=== PATIENT | female | born 1975 | race Caucasian/White ===

== ENCOUNTER → 2018-08-04 15:17 | Outpatient (CLI) | payer BC, SELFPAY ==
[2018-08-03 16:27] VITALS: BMI 25.8
== END ==
PROVIDERS: Family Provider Family Medicine; PCP Family Medicine; Referring Provider Physician Assistant; Visit Provider Physician Assistant
DX: J02.9 Acute pharyngitis, unspecified (principal)
CPT/HCPCS: 87081

== ENCOUNTER 2020-06-05 10:53 | Day surgery (SDC) | payer OTHER, SELFPAY ==
[2018-08-03 16:27] VITALS: BMI 25.8
--- NOTE | 2020-06-02 17:40 | HP.PCM_ITS ---
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 Signed Encounter Date: 05/12/2020 Expand AllCollstaci All Hide copied text Cem for details Pre-Op History and Physical ? HPI: The patient is a 45 year old female presenting for pre-operative visit. She is scheduled for Hysteroscopy D&C and polypectomy, for AUB, EM polyp. Procedure discussed along with risks, benefits and complications. Other alternatives discussed for management. Consent form signed? Yes. ? ? PAST MEDICAL HISTORYExpand by Default PAST MEDICAL HISTORY Diagnosis Date ? NEGATIVE MEDICAL HISTORY ? ? ? PAST SURGICAL HISTORYExpand by Default PAST SURGICAL HISTORY Procedure Laterality Date ? D&C, DIAG AND/OR THERAPEUTIC ? 2002 ? ? ? CURRENT MEDICATIONSExpand by Default Current Outpatient Medications Medication Sig Dispense Refill ? cyanocobalamin, vitamin B-12, (VITAMIN B12 ORAL) Take by mouth. ? ? ? FEXOFENADINE/PSEUDOEPHEDRINE (REINA-D 24 HOUR ORAL) Take by mouth. ? ? ? metroNIDAZOLE (FLAGYL) 500 mg tablet Take 1 tablet by mouth twice daily for 7 days. 14 tablet 0 ? fluconazole (DIFLUCAN) 150 mg tablet Take 1 tablet by mouth one time only for 1 dose. 1 tablet 0 ? ibuprofen (MOTRIN) 600 mg tablet Take 1 tablet by mouth every 6 hours as needed. 30 tablet 0 ? No current facility-administered medications for this visit. ? ? ALLERGIES: Patient has no known allergies. ? PERSONAL HISTORY: SOCIAL HISTORYExpand by Default Social History ? Tobacco Use ? Smoking status: Never Smoker ? Smokeless tobacco: Never Used Substance Use Topics ? Alcohol use: Never ? Drug use: Never ? FAMILY HISTORY: FAMILY HISTORYExpand by Default No family history on file. ? REVIEW OF SYMPTOMS: negative except as noted above PHYSICAL EXAMINATION: ? VITALS: Blood pressure 130/82, weight 161 lb (73 kg), last menstrual period 05/11/2020. ? GENERAL: The patient is well nourished, well hydrated in no acute distress. , The patient is oriented to time, place, and person. NECK: full range of motion GENITALIA: deferred today WET PREP: Not indicated- recent swab +BV and yeast ? IMPRESSION: 45yo with AUB- EM polyp on ultrasound ? PLAN: Hysteroscopy, D&C, polypectomy ? Pt has been counseled on risks/benefits and alternatives of surgery including but not limited to anesthesia, bleeding, infection, uterine perforation with subsequent injury to pelvic structures including bowel, bladder, ureters and vessels. Pt wishes to proceed with surgery at this time. ? POST OP motrin given ? ? I have reviewed and updated past medical and surgical history, medications and allergies Blanche Diamond MD ?1:55 PM
[2020-06-04 11:00] LABS: Hematocrit 36.3 % (37-47); Mean Corp Hgb Conc 30.3 g/dL (32-36); Mean Corpuscular Hgb 24.7 pg (27.0-32.0); Mean Corpuscular Volume 81.6 fL (81-99); Mean Platelet Vol. 9.6 fl (6.2-12.0); Platelet Count 340 K/mm3 (150-450); RBC Distribution Width SD 41.4 fl (35.1-43.9); Red Blood Count 4.45 M/mm3 (4.2-5.4); White Blood Count 6.6 K/mm3 (4.4-11.0)
[2020-06-05] VITALS (10 sets, daily range): BP systolic 112–137; BP diastolic 64–89; PULSE 69–93; RESP 14–18; TEMP 36.1–37.1; O2SAT 97–100; BMI 25.1
[2020-06-05 11:55] LABS: Internal QC Validated? YES +Cl - CLEAR BKGD; Pregnancy, Urine Negative Negative; Record Kit Lot#,Urine Preg 42077
--- NOTE | 2020-06-05 12:30 | EMB_PTH ---
PATIENT: BROWN ADDISON LOC: [facility] [place] U#:[id number] AGE/SX: 45/F ROOM: RE06/05/[address]: Dr. Blanche Roman, MDDOB: 1975 BED: DIS: 06/05/2020 SPEC #: [id number] RECD: 06/05/20 12:59 STATUS: JEFERSON FERDINAND #: [id number] MADDI: 06/05/20 12:[address]: Blanche Roman DEPT: SURGICAL PATHOLOGY RECD BY: Krista Reyez ENTERED: 06/05/20 13:27 SP TYPE: ENDOM BX/C DAPHNE DR: No Primary Care Phys Tissues: Endometrium, NOS Procedures: Surgery Specimen Level IV HEADER OPERATION: Hysteroscopy, D & C Symphion, polypectomy PRE-OP DIAGNOSIS: Abnormal uterine bleeding, EM polyp on ultrasound TISSUE SUBMITTED: Endometrial curettings MICROSCOPIC DIAGNOSIS Endometrial curettings: Early secretory endometrium. Fragments of benign ectocervical epithelium and benign endocervical mucosa with chronic inflammation. RACHEL:marbella 06/06/2020 MICROSCOPIC DESCRIPTION Slides are reviewed. GROSS DESCRIPTION Received in fixative is one container labeled with the patient's name and designated endometrial curettings. The specimen consists of multiple fragments of mendoza hemorrhagic soft tissue that in aggregate measure 5 x 3 x 0.3 cm. The specimen is totally submitted in two cassettes. / Anne 06/05/20 TC:3 CPT: 26562
--- NOTE | 2020-06-05 12:41 | PCM.OPRPT ---
Report of Operation Date of Procedure: 06/05/20 - start 1228 end time 1236 Pre-Operative Diagnosis: AUB, endometrial polyp Post-Operative Diagnosis: AUB Surgery/Procedure Performed:: hysteroscopy, D&C Description of Surgical Findings:: large amount of endometrial tissue, no polyp appreciated. Type of Anesthesia:: MAC Special Medications: none Specimen's removed: endometrial curettings Drains: none Estimated Blood Loss (mL): 5cc Fluids Replaced: 700 Description of Procedure: informed consent was obtained the patient was taken the operating room she was placed in supine position. She was given anesthesia. She was then placed in the [facility] where she was prepped and draped in the normal sterile fashion. bladder drained. At this time the weighted speculum was placed in the posterior fornix of vagina. Single-tooth tenaculum was used to gently grasp the anterior lip the cervix. At this time the uterine cavity was sounded to approximately 8 cm. Gentle dilatation was performed once adequate dilatation of the cervix was achieved the hysteroscope using normal saline as a distention medium was placed. Tubal ostia visualized. This time hysteroscopy was complete. sharp curettage was performed to obtain endometrial curettings. large amount of Tissue removed and will be sent to pathology for evaluation. Tenaculum removed. Good hemostasis. Instrument, lap count correct x 2. Vaginal Sweep was negative. Grafts/Implants Used: none - Complications none - Admit VTE Documentation VTE Present on Admission: Yes VTE Mechan Device Prophylaxis: SCD's VTE Pharm Prophylaxis ordered?: No
--- NOTE | 2020-06-05 12:44 | DCINST_ITS ---
Discharge Diet: No Restrictions Discharge Activity: Return to Normal Activity, May Shower, May Take a Tub Bath - in 2 weeks. Allergies/Adverse Reactions: Allergies No Known Allergies Allergy (Unverified 06/05/20 11:24) Medications to take at Discharge fexofenadine-pseudoephedrine ER 180 mg-240 mg tablet,ext.release 24 hr 1 tab PO QAM 08/03/18 Cyanocobalamin [Vitamin B12] 1,000 mcg PO DAILY@0800 05/29/20 Primary Care Physician: Care Physician,No Primary [Primary Care Provider] - Test Results: Test results from this visit will be discussed in further detail at your follow- up appointment, if applicable. Please Follow Up With: Blanche Roman MD When: 2 weeks
== END 2020-06-05 14:15 | disposition home or self-care (01) ==
LOC: SDC 10:53 → AC 10:54
PROVIDERS: Anesthesiology; Referring Provider Obstetrics & Gynecology; Visit Provider Obstetrics & Gynecology
PROC: 0UB98ZZ Excision of Uterus, Via Natural or Artificial Opening Endoscopic (ICD-10-PCS; CPT 58558; principal; 2020-06-05 12:15)
DX: N93.9 Abnormal uterine and vaginal bleeding, unspecified (principal); N84.0 Polyp of corpus uteri
CPT/HCPCS: 00952; 58558; 36415; 81025; 85027; 87426; 88305; C9803; J7120; J2405

== ENCOUNTER 2021-01-27 01:36 | Emergency (ER) | payer OTHER, SELFPAY ==
[2021-01-27 01:40] VITALS: BP 99/70; PULSE 96; RESP 19; TEMP 37.5; O2SAT 97; BMI 30.6
--- NOTE | 2021-01-27 01:44 | EX.ED.DYSGE1 ---
HPI History of Present Illness Chief Complaint: Syncope Informant: patient and EMS Onset/Context/Timing Onset: Hours Context: Sudden Onset Timing: Intermittent Quality: Syncope with collapse Location: Restroom Current Severity: Gone Maximum Severity: Severe Worsened by: Occurred after coughing and paramedics documented orthostatic hypotension Relieved by: Nothing Associated Symptoms Associated Symptoms: Nausea, pallor, diaphoresis Narrative Narrative: Patient is a 45-year-old woman who was diagnosed with Covid this past week. She got up to use the restroom. While using the restroom she began to cough. She became lightheaded with nausea and sweating. She passed out. Her found her collapsed on the floor. She denies head injury or headache. She denies double vision, blurred vision loss of vision. Nuys ringing or ears decreased hearing. Does have loss of taste and smell. Does report congestion and nonproductive cough. She denies vomiting or diarrhea related to the Covid. She denies dysuria, frequency, urgency or hematuria. Prior similar symptoms: No Recent Illness/Hospital[facility]: Yes (Covid[facility] Medical History Anemia Asthma COVID-19 Hay fever Knee pain Limb weakness neck/back pain Seizures Severe headache Shortness of breath Home Medications fexofenadine-pseudoephedrine ER 180 mg-240 mg tablet,ext.release 24 hr 1 tab PO QAM 08/03/18 [History Last Taken Unknown] cyanocobalamin (vitamin B-12) 1,000 mcg PO DAILY@0800 05/29/20 [History Last Taken Unknown] benzonatate 200 mg capsule 200 mg PO TID PRN #30 cap 01/21/21 [Rx Last Taken Unknown] Allergy/AdvReac Type Severity Reaction Status Date / Time No Known Allergies Allergy Unverified 06/05/20 11:24 Surgical History History of dilation and curettage Social History (Updated 01/27/21 @ 01:[address] Bryon Hill MD) household members: spouse and children Smoking Status: Former smoker alcohol intake: never substance use type: does not use ROS ROS ED Constitutional Constitutional ED: Reports weight loss; Denies chills, fever(s), subjective or sweats Eyes Eyes: Denies blurry vision, change in vision or diplopia ENT ENT ED: Reports rhinorrhea and sore throat; Denies ear pain Cardiovascular Cardiovascular: Denies chest pain, orthopnea or palpitations Respiratory/Chest Respiratory/Chest: Reports cough, dyspnea and dyspnea on exertion; Denies orthopnea or sputum Gastrointestinal Gastrointestinal: Reports nausea; Denies abdominal pain, constipation, diarrhea, melena or vomiting Genitourinary Genitourinary ED: Denies dysuria, hematuria or urinary frequency Musculoskeletal Musculoskeletal: Denies arthralgias, back pain, myalgias or neck pain Integumentary Denies rash Neurologic Neurologic: Reports weakness; Denies headache(s) or paresthesias Endocrine Endocrinology: Denies polydipsia, polyphagia or polyuria EXAM Physical Exam Const Vital Signs: 01/27/21 01:40 01/27/21 01:47 Temperature 99.5 F H Temperature Source Oral Pulse Rate 96 Respiratory Rate 19 H Respiratory Effort Normal Respiratory Pattern Normal Blood Pressure 99/70 Blood Pressure Mean 79 Pulse Ox 97 Oxygen Delivery Method Room Air Positive well nourished and well developed General Appearance ED: well developed and NAD HEENT HEENT Narrative: Head is atraumatic normocephalic. There is no clinical signs of basilar skull fracture. Ears normal without trauma. Nares patent with no septal deviation. Posterior pharynx unremarkable. Mucosa is dry. Eyes PERRL and EOMs intact bilaterally General Eye ED: Negative for pale conjunctiva or scleral icterus Neck no lymphadenopathy, supple and no JVD Chest Wall palpation of chest normal Resp normal respiratory effort and clear to auscultation bilaterally Cardio regular rate, regular rhythm, S1 normal heart sound, S2 normal heart sound and no murmurs GI normal to inspection, nondistended, normoactive bowel sounds and non-tender Palpation: soft Back/Spine no CVA tenderness Thoracic Spine / Upper Back: Negative for thoracic spinal tenderness or paraspinal muscle tenderness Extremity normal to inspection General Extremety ED: Negative for edema or tenderness General Extremity: Negative for edema Neuro oriented x3, CN's II-XII intact bilaterally and no sensory deficits noted Sensorium / Orientation: alert Motor Exam: strength 5/5 throughout Psych mental status grossly normal Skin no rashes or lesions noted and no wounds MDM MDM MDM Narrative Medical decision making narrative: Street is consistent with posttussive syncope. Since she is orthostatic with poor p.o. intake 1 L of normal saline was ordered. She was placed on the monitor. Monitor reveals normal sinus rhythm. Patient was reassessed at 0237. She states she feels better but tired. Once the liter has infused will discharge to home. Discharge Plan Triage Chief Complaint: Syncope ED Provider: Bryon Hill Dx/Rx/DC Orders Clinical Impression: Post-tussive syncope, Orthostatic hypotension, Acute dehydration Instructions: ED Hypotension, Orthostatic, ED Fainting, Vagal Reaction Prescriptions: No Action Carmen-D 24 Hour 180-240 mg tablet extended release 24 hr 1 tab PO QAM RF: 0 benzonatate 200 mg capsule 200 mg PO TID PRN (Reason: cough) Qty: 30 RF: 0 cyanocobalamin (vitamin B-12) 500 MCG tablet 1,000 mcg PO DAILY@0800 RF: 0 Primary Care Provider: Care Physician,No Primary Referrals: Joseph Cueto MD [STAFF PHYSICIAN] - 1-2 Weeks Care Physician,No Primary [Primary Care Provider] - Disposition Disposition: Home, Self Care
[2021-01-27] MEDS: 0.9% Normal Saline 1,000 ML 1000 ML IV (01:52)
[2021-01-27 02:53] VITALS: BP 107/59; PULSE 89; RESP 18; O2SAT 97
== END 2021-01-27 02:54 | disposition home or self-care (01) ==
PROVIDERS: Emergency Provider Emergency Medicine
DX: I95.1 Orthostatic hypotension (principal); E86.0 Dehydration; U07.1 COVID-19; Z87.891 Personal history of nicotine dependence
CPT/HCPCS: 99285; A4216

== ENCOUNTER 2022-05-06 10:36 | Emergency (ER) | payer BC, SELFPAY ==
[2022-05-06 10:37] VITALS: BP 153/103; PULSE 83; RESP 16; TEMP 36.4; O2SAT 100; BMI 27.3
--- NOTE | 2022-05-06 11:01 | EDS_ITS ---
HPI History of Present Illness Chief Complaint: Upper Extremity Injury Informant: patient Narrative Narrative: [id number] female intermittent numbness down the right arm for the past 2 weeks. 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 He had mild neck pain. She went to the chiropractor a week ago with adjustment with improvement in neck pain. Arm symptoms persist however today had squeezing sensation upper arm causing near syncopal episode. No chest pains. No shortness of breath. She had similar radicular pain 2 years ago managed with chiropractor with improvement. She had numbness to the pinky. She states occasional numbness to the pinky with more pain numbness down the back of her upper arm to the elbow. Denies any weakness. Denies history of gastric ulcers or kidney injury. She does not have a PCP. She went to [employer] from work evaluated and sent here for evaluation. She reports father had MO at age 49 and . Prior similar symptoms: Yes PFSH PFS Medical History Anemia Asthma COVID-19 Hay fever Knee pain Limb weakness neck/back pain Seizures Severe headache Shortness of breath Home Medications fexofenadine-pseudoephedrine ER 180 mg-240 mg tablet,ext.release 24 hr (Carmen- D 24 Hour) 1 tab PO QAM seasonal allergies 08/03/18 [History Last Taken Unknown] cyanocobalamin (vitamin B-12) 500 mcg tablet 1,000 mcg PO DAILY@0800 supplement 05/29/20 [History Last Taken Unknown] benzonatate 200 mg capsule 200 mg PO TID PRN cough #30 caps 01/21/21 [Rx Last Taken Unknown] gabapentin 300 mg capsule 300 mg PO QHS #30 caps 05/06/22 [Rx Last Taken Unknown] ibuprofen 600 mg tablet 600 mg PO 4X/DAY PRN Pain Or Fever #20 tabs 05/06/22 [Rx Last Taken Unknown] Allergy/AdvReac Type Severity Reaction Status Date / Time No Known Allergies Allergy Unverified 05/06/22 10:37 Surgical History History of dilation and curettage Social History household members: spouse and children Smoking Status: Former smoker alcohol intake: never substance use type: does not use ROS ROS ED Constitutional Constitutional ED: Denies chills, fever(s) or sweats Eyes Eyes: Denies change in vision ENT ENT ED: Denies dysphagia or sore throat Cardiovascular Cardiovascular: Denies chest pain, leg edema, palpitations or racing heartbeat Respiratory/Chest Respiratory/Chest: Denies cough, dyspnea or dyspnea on exertion Gastrointestinal Gastrointestinal: Denies abdominal pain, diarrhea, nausea or vomiting Genitourinary Genitourinary ED: Denies dysuria, hematuria or urinary frequency Musculoskeletal Musculoskeletal: Denies back pain, extremity pain or neck pain Integumentary Denies rash or wounds Neurologic Neurologic: Reports paresthesias; Denies headache(s) or weakness EXAM Physical Exam Const Vital Signs: 05/06/22 10:37 Temperature 97.5 F L Temperature Source Temporal Pulse Rate 83 Respiratory Rate 16 Blood Pressure 153/103 H Blood Pressure Mean 119 Pulse Ox 100 Oxygen Delivery Method Room Air Positive well nourished and well developed General Appearance ED: well developed and NAD HEENT Reports moist mucous membranes normocephalic and atraumatic Eyes PERRL, EOMs intact bilaterally and conjunctivae normal General Eye ED: Yes normal appearance of both eyes Neck full ROM, no lymphadenopathy and supple Neck Narrative: Positive Spurling's test to the right with sensation down the C8 dermatome. Symptoms relieved with flexion and sidebending to the left. General: Negative for tenderness Chest Wall Chest: Negative for tenderness Resp normal respiratory effort and normal air movement Effort and Inspection: symmetric chest movement; Negative for respiratory distress Cardio regular rate, regular rhythm and no murmurs Peripheral Pulses: pulses 2+ throughout GI normal to inspection, nondistended, normoactive bowel sounds and non-tender Palpation: Negative for guarding or rebound tenderness present Back/Spine no CVA tenderness and no thoracic nor lumbar tenderness Extremity normal to inspection General Extremety ED: Negative for edema or tenderness General Extremity: Negative for edema Neuro oriented x3 and no sensory deficits noted Neuro Narrative: 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 Normal strength of abduction bilaterally. Pulses are intact distally. Sensorium / Orientation: awake and alert Skin no rashes or lesions noted and no wounds MDM MDM MDM Narrative Medical decision making narrative: Patient vital stable no focal neurologic deficits. Differential is vasovagal near syncope with her pain induced. Her exam concerns for cervical radiculopathy specifically C8 reproducible she has C7 sensation also. Spinal stenosis versus disc hernia however likely stenosis with overuse syndrome. No skin changes for concerns of shingles currently. Discussed findings and concerns with the patient. She understands improvement with flexion and side bent to the left. Family history of cardiac MO however no chest pains. Discussed importance of follow-up with the PCP to follow as she is currently 46 and that had event in the late 40s. Prescription for ibuprofen and gabapentin started. PCP follow-up. She declines placement as a Worker's Compensation injury. She will follow-up as an outpatient. All questions were answered. Discharge Plan Triage Chief Complaint: Upper Extremity Injury ED Provider: Jet Becerra Dx/Rx/DC Orders Clinical Impression: Cervical radiculopathy, Arm pain, right, Vasovagal near syncope Instructions: ED Radiculopathy, Cervical, ED Near-Fainting- Vagal Reaction Prescriptions: New gabapentin 300 mg capsule 300 mg PO QHS Qty: 30 0RF ibuprofen 600 mg tablet 600 mg PO 4X/DAY PRN (Reason: Pain Or Fever) Qty: 20 0RF No Action Carmen-D 24 Hour 180-240 mg tablet extended release 24 hr 1 tab PO QAM benzonatate 200 mg capsule 200 mg PO TID PRN (Reason: cough) Qty: 30 0RF cyanocobalamin (vitamin B-12) 500 MCG tablet 1,000 mcg PO DAILY@0800 Primary Care Provider: Care Physician,No Primary Referrals: Crista Lorenz MD [Med Staff - Customer Experience Retail Clerk] - 1-2 Weeks Care Physician,No Primary [Primary Care Provider] - Activity Restrictions/Additional Instructions: Your history and exam concerns for right cervical radiculopathy affecting C7 and C8. There is no weakness. Take medications as prescribed. Follow-up as an outpatient. Disposition Disposition: Home, Self Care
== END 2022-05-06 11:20 | disposition home or self-care (01) ==
LOC: ED 11:09
PROVIDERS: Emergency Provider Emergency Medicine; Visit Provider Emergency Medicine
DX: M79.601 Pain in right arm (principal); R55 Syncope and collapse; M54.12 Radiculopathy, cervical region; J45.909 Unspecified asthma, uncomplicated; Z87.891 Personal history of nicotine dependence; R20.2 Paresthesia of skin
CPT/HCPCS: 99282

== ENCOUNTER 2023-04-20 19:01 | Emergency (ER) | payer BC, SELFPAY ==
[2023-04-20 19:05] VITALS: BP 117/71; PULSE 106; RESP 15; TEMP 36.3; O2SAT 98; BMI 27.1
[2023-04-20 19:07] VITALS: BP 117/71; PULSE 118; RESP 19; TEMP 37.1; O2SAT 96
[2023-04-20 19:43] LABS: Absolute Lymphocyte Count 0.52 X10^3/uL (0.83-4.51); Absolute Neutrophil Count 2.9 X10^3/uL (2.0-7.7); Basophil# 0.02 X10^3/uL; Basophil% 0.5 % (0-1); Hematocrit 37.5 % (37-47); Hemoglobin 12.9 g/dL (12.0-15.0); Lymphocyte # 0.52 X10^3/ul (0.83-4.51); Lymphocyte % 13.3 % (19-41); Mean Corp Hgb Conc 34.4 g/dL (32-36); Mean Corpuscular Hgb 29.5 pg (27.0-32.0); Mean Corpuscular Volume 85.6 fL (81-99); Mean Platelet Vol. 9.1 fl (6.2-12.0); Monocyte# 0.44 X10^3/uL; Monocyte% 11.3 % (0-10); NRBC Flagged by Analyzer 0 % (0-5); Neutrophil # 2.91 X10^3/uL (2.7-7.7); Neutrophil % 74.4 % (47-70); POSITIVE DIFFERENTIAL YES; Platelet Count 262 K/mm3 (150-450); RBC Distribution Width CV 12.7 % (11.6-14.6); RBC Distribution Width SD 39.5 fl (35.1-43.9); Red Blood Count 4.38 M/mm3 (4.2-5.4); White Blood Count 3.9 K/mm3 (4.4-11.0)
--- NOTE | 2023-04-20 19:46 | EX.ED.DYSGE1 ---
HPI <ESTRELLA Ramirez - Last Filed: 04/20/23 20:40> History of Present Illness Chief Complaint: Cough Narrative Narrative: 47-year-old female has had cough and congestion for 9 days. Her family was sick with similar symptoms. Today after eating dinner she sat down in a recliner and started to feel ill. She felt nauseous and family states she looked pale. She was shaky and stopped responding for about a minute. She was then quickly back to baseline. She had no tongue bite or incontinence. No chest pain or shortness of breath over the course of her illness. She did have loose stool today but denies black or bloody stools. No abdominal pain or vomiting. PFSH <ESTRELLA Ramirez - Last Filed: 04/20/23 20:40> [facility], [facility] Medical History Anemia Asthma COVID-19 Hay fever Knee pain Limb weakness neck/back pain Seizures Severe headache Shortness of breath Home Medications fexofenadine-pseudoephedrine ER 180 mg-240 mg tablet,ext.release 24 hr (Carmen-D 24 Hour) 1 tab PO QAM seasonal allergies 08/03/18 [History Last Taken Unknown] cyanocobalamin (vitamin B-12) 500 mcg tablet 1,000 mcg PO DAILY@0800 supplement 05/29/20 [History Last Taken Unknown] benzonatate 200 mg capsule 200 mg PO TID PRN cough #30 caps 01/21/21 [Rx Last Taken Unknown] gabapentin 300 mg capsule 300 mg PO QHS #30 caps 05/06/22 [Rx Last Taken Unknown] ibuprofen 600 mg tablet 600 mg PO 4X/DAY PRN Pain Or Fever #20 tabs 05/06/22 [Rx Last Taken Unknown] Allergy/AdvReac Type Severity Reaction Status Date / Time No Known Allergies Allergy Verified 04/20/23 19:02 Surgical History History of dilation and curettage Social History household members: spouse and children Smoking Status: Former smoker alcohol intake: never substance use type: does not use ROS <ESTRELLA Ramirez - Last Filed: 04/20/23 20:40> ROS ED ROS Narrative Constitutional: Positive for fever, chills, malaise. ENT: Positive for rhinorrhea. CVS: Negative for palpitations, chest pain. Respiratory: Positive for cough. Negative for shortness of breath. GI: Positive for nausea, diarrhea. Negative for abdominal pain, vomiting,melena, hematochezia. : Negative for dysuria, hematuria or frequency. Neuro: Negative for headache, motor/sensory dysfunction. EXAM <ESTRELLA Ramirez - Last Filed: 04/20/23 20:40> Physical Exam Narrative Exam Narrative: CONST: Patient sitting in no acute distress. EYES: Normal inspection. ENT: Normal inspection, dry mucous membranes. No tongue bite. NECK: Normal inspection. RESP: No respiratory distress, CTAB. CVS: Regular rate and rhythm, no murmur, no gallop. ABD: Soft and nontender, no guarding or rebound, nondistended. SKIN: Color normal, no rash, warm, dry, intact. EXTREMITIES: Normal appearance, no pedal edema. NEURO: Oriented x4. PSYCH: Normal affect. Const Vital Signs: 04/20/23 19:05 04/20/23 19:07 04/20/23 19:07 Temperature 97.3 F L 98.8 F 98.8 F Temperature Source Temporal Oral Oral Pulse Rate 106 H 118 H Respiratory Rate 15 19 H Respiratory Effort Respiratory Depth Respiratory Pattern Blood Pressure 117/71 117/71 Blood Pressure Mean 86 86 Pulse Ox 98 96 Oxygen Delivery Method Room Air Room Air 04/20/23 19:39 04/20/23 20:39 Temperature Temperature Source Pulse Rate 104 H Respiratory Rate 16 Respiratory Effort Normal Respiratory Depth Normal Respiratory Pattern Normal Blood Pressure 125/67 H Blood Pressure Mean 86 Pulse Ox 97 Oxygen Delivery Method <Dr. Bryon Hill MD - Last Filed: 04/20/23 22:14> Physical Exam Const Vital Signs: 04/20/23 19:05 04/20/23 19:07 04/20/23 19:07 Temperature 97.3 F L 98.8 F 98.8 F Temperature Source Temporal Oral Oral Pulse Rate 106 H 118 H Respiratory Rate 15 19 H Respiratory Effort Respiratory Depth Respiratory Pattern Blood Pressure 117/71 117/71 Blood Pressure Mean 86 86 Pulse Ox 98 96 Oxygen Delivery Method Room Air Room Air 04/20/23 19:39 04/20/23 20:39 Temperature Temperature Source Pulse Rate 104 H Respiratory Rate 16 Respiratory Effort Normal Respiratory Depth Normal Respiratory Pattern Normal Blood Pressure 125/67 H Blood Pressure Mean 86 Pulse Ox 97 Oxygen Delivery Method [facility] <ESTRELLA Ramirez - Last Filed: 04/20/23 20:40> [facility] Narrative Medical decision making narrative: History gathered from: Patient and family members Patient has had 9 days of cough and congestion. She had a brief syncopal episode today which sounds vasovagal in nature. She well and nontoxic. Heart rate is 106 with otherwise normal vital signs. She does have dry mucous membranes with an otherwise benign exam. No tongue bite or incontinence. Workup ordered and she tested positive for influenza A. She is mildly leukopenic at 3.9, potassium 3.2, creatinine 1.05. Glucose is 159 with normal CO2 and anion gap. She was given IV fluids, p.o. potassium, and Zofran. EKG is sinus rhythm with no ischemic changes and CXR shows no acute process. I feel she is safe for discharge home. I recommended symptomatic treatment and discussed return precautions. Differential: Viral URI, pneumonia, cardiac arrhythmia, electrolyte derangement Lab Data Attestation: I reviewed the patient's lab results. Labs: Laboratory Results - last 24 hr 04/20/23 19:35 WBC 3.9 L RBC 4.38 Hgb 12.9 Hct 37.5 MCV 85.6 MCH 29.5 MCHC 34.4 RDW Std Deviation 39.5 RDW Coeff of Peter 12.7 Plt Count 262 MPV 9.1 Immature Gran % (Auto) 0.500 Neut % (Auto) 74.4 H Lymph % (Auto) 13.3 L [place] % (Auto) 11.3 H Eos % (Auto) 0.0 Baso % (Auto) 0.5 Absolute Neuts (auto) 2.9 Absolute Lymphs (auto) 0.52 L Nucleated RBC % 0 Differential Comment SEECOMMENT Diff Path Review May foll Platelet Estimate ADEQUATE RBC Morphology N CHROM Anisocytosis RARE Sodium 136 Potassium 3.2 L Chloride 104 Carbon Dioxide 24.0 Anion Gap 8 BUN 10 Creatinine 1.05 H Estim Creat Clear Calc 65.10 Est GFR (MDRD) Af Amer 72 Est GFR (MDRD) Non-Af 60 BUN/Creatinine Ratio 9.5 L Glucose 159 H Calcium 8.1 L Radiography Diagnostic Testing: Clinical Impression(s) from Imaging Studies Chest X-Ray 04/20/23 19:48 IMPRESSION: Normal x-ray examination of the chest. Electronically Signed: Patrick Sidhu MD at 20:18 EST , ED attending interpretation of 2-view chest x-ray shows normal heart size, no acute infiltrate, edema, or effusion. EKG Initial EKG: Attestation: I personally reviewed and interpreted this EKG as follows: Interpretation: No Acute Injury Pattern and Sinus Tachycardia Comments: Sinus tachycardia at 101 bpm Normal intervals, no acute ST changes <Dr. Bryon Hill MD - Last Filed: 04/20/23 22:14> [facility] Narrative Medical decision making narrative: History gathered from: Patient and family members Patient has had 9 days of cough and congestion. She had a brief syncopal episode today which sounds vasovagal in nature. She well and nontoxic. Heart rate is 106 with otherwise normal vital signs. She does have dry mucous membranes with an otherwise benign exam. No tongue bite or incontinence. Workup ordered and she tested positive for influenza A. She is mildly leukopenic at 3.9, potassium 3.2, creatinine 1.05. Glucose is 159 with normal CO2 and anion gap. She was given IV fluids, p.o. potassium, and Zofran. EKG is sinus rhythm with no ischemic changes and CXR shows no acute process. I feel she is safe for discharge home. I recommended symptomatic treatment and discussed return precautions. Differential: Viral URI, pneumonia, cardiac arrhythmia, electrolyte derangement I have personally performed a face to face assessment of the patient and have reviewed the NAEL Note. I performed a substantive portion of the visit including all aspects of the following. My madera findings include: History is remarkable for viral-like symptoms suggestive of influenza or COVID in light of her myalgias arthralgias and fever. She has been around other family numbers had been ill. She does complain of headache. He does have a cough. Exam is remarkable for tachycardia. There is no respiratory distress. She is not hypoxic. She appears in ill but not toxic. HEENT exam is grossly unremarkable. Heart is rapid and regular. She is alert oriented x 3. Medical Decision Making workup was undertaken to evaluate for influenza versus COVID versus pneumonia. Patient has type a influenza. She was discharged home with appropriate home-going instructions. She was encouraged to drink more fluids. Other additions or changes: [None] Lab Data Lab results narrative: 's white count reveals neutropenia. There is no bandemia. Electrolyte panel reveals slight elevation of creatinine of 1.05 and mild hypokalemia. Glucose is elevated 159 with normal CO2 anion gap. Rapid antigen for influenza and COVID indicates patient has type a influenza. Labs: Laboratory Results - last 24 hr 04/20/23 19:35 WBC 3.9 L RBC 4.38 Hgb 12.9 Hct 37.5 MCV 85.6 MCH 29.5 MCHC 34.4 RDW Std Deviation 39.5 RDW Coeff of Peter 12.7 Plt Count 262 MPV 9.1 Immature Gran % (Auto) 0.500 Neut % (Auto) 74.4 H Lymph % (Auto) 13.3 L [place] % (Auto) 11.3 H Eos % (Auto) 0.0 Baso % (Auto) 0.5 Absolute Neuts (auto) 2.9 Absolute Lymphs (auto) 0.52 L Nucleated RBC % 0 Differential Comment SEECOMMENT Diff Path Review May foll Platelet Estimate ADEQUATE RBC Morphology N CHROM Anisocytosis RARE Sodium 136 Potassium 3.2 L Chloride 104 Carbon Dioxide 24.0 Anion Gap 8 BUN 10 Creatinine 1.05 H Estim Creat Clear Calc 65.10 Est GFR (MDRD) Af Amer 72 Est GFR (MDRD) Non-Af 60 BUN/Creatinine Ratio 9.5 L Glucose 159 H Calcium 8.1 L Radiography Chest X-Ray - ED: 2 View and Read by ED Physician (2 view chest x-ray independently reviewed interpreted by me as negative. Cardiac silhouette size normal. Lung parenchyma normal. Perihilar region normal. Osseous trucks is unremarkable.) Diagnostic Testing: Clinical Impression(s) from Imaging Studies Chest X-Ray 04/20/23 19:48 IMPRESSION: Normal x-ray examination of the chest. Electronically Signed: Patrick Sidhu MD at 20:18 EST , Discharge Plan Triage Chief Complaint: Cough Other Complaint: Cold Sx Diarrhea ED Midlevel Provider: Ingris Cali ED Provider: Bryon Hill Dx/Rx/DC Orders Clinical Impression: Influenza A, Syncope, vasovagal, Acute hypokalemia, Dehydration, Elevated serum creatinine Instructions: ED Influenza (Adult) Prescriptions: No Action Carmen-D 24 Hour 180-240 mg tablet extended release 24 hr 1 tab PO QAM benzonatate 200 mg capsule 200 mg PO TID PRN (Reason: cough) Qty: 30 0RF cyanocobalamin (vitamin B-12) 500 MCG tablet 1,000 mcg PO DAILY@0800 gabapentin 300 mg capsule 300 mg PO QHS Qty: 30 0RF ibuprofen 600 mg tablet 600 mg PO 4X/DAY PRN (Reason: Pain Or Fever) Qty: 20 0RF Primary Care Provider: Care Physician,No Primary Referrals: Care Physician,No Primary [Primary Care Provider] - Activity Restrictions/Additional Instructions: You tested positive for influenza A which explains your ongoing symptoms over the last 9 days. Rest, drink plenty of fluids, take Tylenol as needed for fever or pain. Your episode of fainting was likely vasovagal syncope which is a brief drop in your heart rate and blood pressure. It is usually benign. If symptoms worsen or you pass out again please be reevaluated. Disposition Disposition: Home, Self Care Discharge Date/Time: 04/20/23 20:56
--- NOTE | 2023-04-20 19:48 | RAD_ITS ---
STUDY: X-RAY CHEST REASON FOR EXAM: Female, 47 years old. Cough TECHNIQUE: PA and lateral views of the chest. COMPARISON: None. FINDINGS: The lungs are clear and expanded. There is no demonstrated pleural abnormality. Normal size heart. Normal mediastinum and pj. Normal visualized pulmonary arteries. Normal visualized aortic arch and descending thoracic aorta. Normal visualized thoracic spine. Normal visualized ribs, clavicles, and shoulders. There is no demonstrated abnormality of the visualized soft tissue structures of the upper abdomen. RAD/Chest PA and Lateral IMPRESSION: Normal x-ray examination of the chest. Electronically Signed: Patrick Sidhu MD at 20:[address] [facility] ,
[2023-04-20] MEDS: Ondansetron 4 MG/2 ML Vial IV (19:53)
[2023-04-20 19:57] LABS: Anion Gap 8 (5-15); BUN 10 mg/dL (7-18); BUN/Creat Ratio 9.5 RATIO (10-20); Calcium,Total 8.1 mg/dL (8.5-10.1); Chloride 104 mmol/L (98-107); Creatinine, Serum 1.05 mg/dL (0.55-1.02); EST Glomerular Filtration Rate 60 mL/min (>60); Est Glom Filt Rate - Afr Amer 72 mL/min (>60); Glucose 159 mg/dL (74-106); Potassium 3.2 mmol/L (3.5-5.1); Sodium Level 136 mmol/L (136-145)
[2023-04-20] MEDS: Potassium Chloride Oral Tablet 20 MEQ 40 MEQ PO (20:22)
[2023-04-20 20:27] LABS: Differential Indicated SCAN CRITERIA MET
[2023-04-20 20:39] VITALS: BP 125/67; PULSE 104; RESP 16; O2SAT 97
[2023-04-20 20:42] LABS: Anisocytosis RARE; Differential Comment SEECOMMENT; Platelet Estimate ADEQUATE (ADEQ); Red Cell Morphology N CHROM NORMAL (NORM C&C)
[2023-04-21 12:29] LABS: Pathologist Review Reviewed
== END 2023-04-20 20:56 | disposition home or self-care (01) ==
PROVIDERS: Physician Assistant; Emergency Provider Emergency Medicine; Visit Provider Emergency Medicine
DX: J10.1 Influenza due to other identified influenza virus with other respiratory manifestations (principal); E86.0 Dehydration; R55 Syncope and collapse; E87.6 Hypokalemia; Z87.891 Personal history of nicotine dependence; Z86.16 Personal history of COVID-19
CPT/HCPCS: 71046; 80048; 85025; 87428; 93005; 96374; 99283; A4216; J2405